=== PATIENT | female | born 1935 | race Two or more races ===

== ENCOUNTER 2016-05-01 23:31 | Emergency (ER) | payer MEDICARE, OTHER ==
[2016-05-02 01:59] LABS: ABSOLUTE NEUTROPHIL COUNT 2.9 K/mm3 (1.8-7.7); BASO % 0.6 % (0.2-1.0); EOS # 0.2 (0.0-0.5); EOS % 2.1 % (0.9-2.9); HEMATOCRIT 36.7 % (37.0-47.0); HEMOGLOBIN 11.9 gm/l (12.0-16.0); IMM NEUT% 0.3 % (0-1); LYMPH # 3.4 (1.0-4.8); LYMPH % 48.4 % (15-45); MEAN CELL VOLUME 91.8 fl (81.0-99.0); MEAN CORPUSCULAR HEMOGLOBIN 29.8 pg (27.0-31.0); MEAN CORPUSCULAR HGB CONC 32.4 g/dl (33.0-37.0); MEAN PLATELET VOLUME 10.5 fl (7.4-10.4); MONO # 0.5 (0.0-0.8); MONO % 7.7 % (4-12); NEUT % 40.9 % (43-75); PLATELET COUNT 274 K/mm3 (130-400); RED CELL DISTRIBUTION WIDTH 13.3 % (11.5-14.5)
[2016-05-02 02:11] LABS: ALB/GLOB RATIO 1.2 (>1.0); ALBUMIN 3.8 gm/dL (3.5-5.7); CALCIUM 9.4 mg/dL (8.6-10.3)
[2016-05-02 02:50] LABS: SPECIFIC GRAVITY 1.025 (1.001-1.030); URINE BILIRUBIN NEGATIVE (NEGATIVE); URINE BLOOD 2+ (NEGATIVE); URINE GLUCOSE (UA) NEGATIVE (NEGATIVE); URINE LEUKOCYTE ESTERASE NEGATIVE (NEGATIVE); URINE NITRITE NEGATIVE (NEGATIVE); URINE PROTEIN TRACE (NEGATIVE); URINE UROBILINOGEN NORMAL (0-1 mg/dl)
[2016-05-02 02:51] LABS: URINE APPEARANCE SL CLOUDY; URINE COLOR YELLOW
[2016-05-02 02:59] LABS: URINE BACTERIA TRACE; URINE MUCUS 1+
--- NOTE | 2016-05-02 13:26 | CT ---
HEAD W/O CON COMPARISON: CT of the head, 10/13/2015 HISTORY: Headache starting yesterday. TECHNIQUE: Using a [email or web address] [address] scanner, images were obtained through the head. An automated dose reduction technique was used to minimize patient radiation dose. DOSE INFORMATION: CTDIvol (mGy): 51.70 DLP(mGycm): 887.30 FINDINGS: Mass: None Intracranial Hemorrhage: None Acute Infarction: None Cerebral hemispheres: Mild atrophy. Basal ganglia: Normal Thalami: Normal Brainstem: Normal Cerebellum: Normal Ventricles: Normal Basilar cisterns: Normal Corpus callosum: Normal Pituitary fossa: Normal Middle ears and mastoid air cells: Normal Orbits and sinuses: Normal Skull and scalp: Normal Dural sinuses and vessels: Normal IMPRESSION: Normal study. Preliminary report by [facility] radiologist Reza Shin M.D. 05/02/2016 at 03:04
--- NOTE | 2016-05-02 14:42 | RAD ---
CHEST - 2 VIEWS COMPARISON: CT chest without contrast, 02/05/2016 HISTORY: 80-year-old female with hypertension and GERD, with headache for 2 days associated with malaise, fatigue, cough, and generalized chest pressure. Intermittent shortness of breath. FINDINGS: Views: Frontal and lateral chest Lungs: Low volumes with some compressive subsegmental atelectasis in the lung bases. No evidence of pneumonia. Heart and vessels: Normal Trachea and bronchi: Normal Mediastinum and marlen: Normal Costophrenic sulci: Normal Chest wall and bones: Thoracic hyperkyphosis. Osteoporosis with spondylosis and multiple old compression fractures. Upper abdomen: Normal. IMPRESSION: 1. No acute finding. Low lung volumes with subsegmental atelectasis in the lung bases. 2. Chronic findings include osteoporosis: Old compression fractures, and spondylosis/hyperkyphosis of the thoracic spine.
== END 2016-05-02 05:25 | disposition home or self-care (01) ==
LOC: ED 23:31
DX: R51 Headache (principal); R53.83 Other fatigue; I10 Essential (primary) hypertension; K21.9 Gastro-esophageal reflux disease without esophagitis; Z86.711 Personal history of pulmonary embolism; Z79.01 Long term (current) use of anticoagulants